=== PATIENT | female | born 1935 | race Caucasian/White ===

== ENCOUNTER 2022-01-30 14:05 | Outpatient (CLI) | payer MEDICARE, BC | END 2022-01-30 14:06 | disposition home or self-care (01) | LOC: CSHMAMMO 14:05 | PROVIDERS: ATTEND Family Medicine | DX: Z12.31 Encounter for screening mammogram for malignant neoplasm of breast (principal); Z98.890 Other specified postprocedural states; Z91.89 Other specified personal risk factors, not elsewhere classified; Z80.3 Family history of malignant neoplasm of breast | CPT/HCPCS: 77063; 77067 ==

== ENCOUNTER 2022-04-04 15:49 | Inpatient (IN) | payer MEDICARE, BC ==
[2022-04-04 16:35] LABS: #Monocytes 0.3 10x3/uL (0.0-1.1); #Neutrophils 4.5 10x3/uL (1.5-8.4); %Basophils 0.2 % (0.0-2.0); %Eosinophils 0.6 % (0.0-6.0); %Lymphocytes 24.2 % (18.0-47.0); %Monocytes 5.3 % (0.0-10.0); %Neutrophils 69.4 % (40.0-75.0); Hemoglobin 12.7 g/dL (12.0-15.5); Mean Corpuscular HGB CONC 33.2 g/dL (32.0-36.0); Mean Corpuscular Hemoglobin 29.1 pg (27.0-33.0); Mean Corpuscular Volume 87.4 fl (81.6-98.3); Platelet Count 235 10x3/uL (150-450); RBC Distribution Width 13.2 % (11.5-14.5); Red Blood Cell (RBC) Count 4.37 10x6/uL (3.90-5.03); White Blood Cell (WBC) Count 6.5 10x3/uL (3.5-10.5)
[2022-04-04 16:46] LABS: ALT (SGPT) 15 U/L (8-55); AST (SGOT) 25 U/L (5-34); Albumin 3.8 g/dL (3.4-4.8); Alkaline Phosphatase 59 U/L (40-110); Anion Gap 10 mmol/L (10-20); BUN (Urea Nitrogen) 16 mg/dL (9.8-20.1); Bilirubin, Total 0.2 mg/dL (0.2-1.2); Calc. Creatinine Clearance 0 mL/min (70-130); Calcium 8.9 mg/dL (7.8-10.44); Carbon Dioxide 25 mmol/L (23-31); Chloride 100 mmol/L (98-107); Estimated GFR 80; Globulin 2.9 g/dL (2.4-3.5); Glucose 184 mg/dL (83-110); Lipase 32 U/L (8-78); Potassium 3.7 mmol/L (3.5-5.1); Protein, Total 6.7 g/dL (5.8-8.1); Sodium 131 mmol/L (136-145)
[2022-04-04] MEDS ORDERED: Meclizine HCl 25 MG TAB ONE (17:29)
[2022-04-04 17:47] LABS: Bilirubin Neg (Negative); Blood, Urine 10 (Negative); Clarity Clear (Clear); Glucose, Urine (Dipstick) Normal (Negative); Ketone, Urine Negative (Negative); Leukocyte Negative (Negative); Nitrite Negative (Negative); Protein, Urine (Dipstick) Negative (Neg-Trace); Urobilinogen Normal mg/dL (Less than 2)
[2022-04-04 18:04] LABS: Bacteria/HPF Rare-Few HPF (None Seen); RBC/HPF 0-3 HPF (0-3); Squamous Epithelial None Seen HPF (0-3); WBC/HPF 0-3 HPF (0-3)
[2022-04-04] MEDS ORDERED: Aspirin 325 MG TAB ONE (20:40)
[2022-04-04] MEDS ORDERED: Lorazepam 2 MG/ML VIAL ONE (20:40)
[2022-04-05 02:13] LABS: Troponin I Less than 0.010 ng/mL (< 0.028)
[2022-04-05 04:34] LABS: Hemoglobin 11.6 g/dL (12.0-15.5); Mean Corpuscular HGB CONC 33.7 g/dL (32.0-36.0); Mean Corpuscular Hemoglobin 28.9 pg (27.0-33.0); Mean Corpuscular Volume 85.8 fl (81.6-98.3); Mean Platelet Volume 9.9 fl (7.4-10.4); Platelet Count 223 10x3/uL (150-450); RBC Distribution Width 13.2 % (11.5-14.5); Red Blood Cell (RBC) Count 4.01 10x6/uL (3.90-5.03); White Blood Cell (WBC) Count 6.1 10x3/uL (3.5-10.5)
[2022-04-05 04:41] LABS: Anion Gap 12 mmol/L (10-20); BUN (Urea Nitrogen) 10 mg/dL (9.8-20.1); Calc. Creatinine Clearance 0 mL/min (70-130); Calcium 8.8 mg/dL (7.8-10.44); Carbon Dioxide 22 mmol/L (23-31); Cardiac Risk 3.3 (Less than 4.5); Chloride 109 mmol/L (98-107); Cholesterol 172 mg/dl (< 200 Desired); Estimated GFR 86; Glucose 90 mg/dL (83-110); HDL Cholesterol 52 mg/dL (>60 Neg Risk); LDL Cholesterol, Calculated 107 mg/dL; Potassium 3.2 mmol/L (3.5-5.1); Sodium 140 mmol/L (136-145); Triglycerides 64 mg/dL (Less than 150)
[2022-04-05 06:06] LABS: MDiff Complete? YES
[2022-04-05 06:10] LABS: Band 1 % (5-11); Eosinophils 2 % (0-10); Lymphocytes 51 % (21-51); Monocytes 12 % (0-10); Neutrophil 34 % (42-75)
[2022-04-05 06:12] LABS: RBC Morphology Normal
[2022-04-05 06:13] LABS: Platelet Morphology Comment Appears Adequate
[2022-04-05] MEDS: Sodium Chloride 0.9% 1,000 ML IV SCH ×3 (06:58→21:17)
[2022-04-05 07:33] VITALS: BMI 22.4
[2022-04-05 07:53] LABS: Amphetamine Not Detected (NotDetected); Barbiturates Screen Not Detected (NotDetected); Benzodiazepine Screen Not Detected (NotDetected); Cocaine Metabolite Screen Not Detected (NotDetected); Methadone Not Detected (NotDetected); Methamphetamine Not Detected (NotDetected); Opiate Screen Not Detected (NotDetected); Oxycodone Screen Not Detected (NotDetected); Phencyclidine (PCP) Not Detected (NotDetected); THC/Cannabinoid Screen Not Detected (NotDetected); Tricyclic Screen Not Detected (NotDetected)
[2022-04-05] MEDS ORDERED: Enoxaparin Sodium 40 MG/0.4 ML SYRINGE SC SCH (09:00)
[2022-04-05] MEDS ORDERED: Aspirin 81 mg Enteric Coated Tablet PO SCH (09:00)
[2022-04-05] MEDS ORDERED: Levothyroxine Sodium 100 MCG TAB PO SCH (09:15)
[2022-04-05] MEDS: Amlodipine 5 MG TAB PO SCH (10:33)
[2022-04-05] MEDS: hydrALAZINE 10 MG TAB PO SCH ×2 (10:35→21:04)
[2022-04-05] MEDS: Lisinopril 20 MG TAB PO SCH (21:03)
[2022-04-05] MEDS: Apixaban 2.5 MG TAB PO SCH (21:04)
[2022-04-05] MEDS: Amiodarone 200 MG TAB PO SCH (21:04)
[2022-04-06] MEDS ORDERED: hydrALAZINE 20 MG/ML VIAL SLOW IVP PRN (05:09)
[2022-04-06] MEDS: Levothyroxine Sodium 100 MCG TAB PO SCH (05:14)
[2022-04-06] MEDS: Amlodipine 5 MG TAB PO SCH (08:17)
[2022-04-06] MEDS: Lisinopril 20 MG TAB PO SCH ×2 (08:17→20:12)
[2022-04-06] MEDS: Amiodarone 200 MG TAB PO SCH ×2 (08:18→20:26)
[2022-04-06] MEDS: hydrALAZINE 10 MG TAB PO SCH ×2 (08:18→20:12)
[2022-04-06] MEDS: Apixaban 2.5 MG TAB PO SCH ×2 (08:18→20:13)
[2022-04-06] MEDS: Meloxicam 7.5 MG TAB PO SCH (08:18)
[2022-04-06] MEDS: Potassium Chloride 10 MEQ TAB PO SCH (08:18)
[2022-04-06] MEDS ORDERED: Aspirin 325 mg Enteric Coated Tablet PO SCH (09:00)
[2022-04-06 09:12] LABS: Anion Gap 13 mmol/L (10-20); BUN (Urea Nitrogen) 11 mg/dL (9.8-20.1); Calc. Creatinine Clearance 58 mL/min (70-130); Calcium 8.9 mg/dL (7.8-10.44); Carbon Dioxide 21 mmol/L (23-31); Chloride 112 mmol/L (98-107); Estimated GFR 86; Glucose 93 mg/dL (83-110); Potassium 3.7 mmol/L (3.5-5.1); Sodium 142 mmol/L (136-145)
[2022-04-06] MEDS: Sodium Chloride 0.9% 1,000 ML IV SCH (17:59)
[2022-04-06] MEDS: Atorvastatin Calcium 40 MG TAB PO SCH (20:11)
[2022-04-07] MEDS: Levothyroxine Sodium 100 MCG TAB PO SCH (05:18)
[2022-04-07 05:38] LABS: #Eosinphils 0.2 10x3/uL (0.0-0.5); #Monocytes 0.8 10x3/uL (0.0-1.1); #Neutrophils 2.9 10x3/uL (1.5-8.4); %Basophils 0.3 % (0.0-2.0); %Eosinophils 2.8 % (0.0-6.0); %Monocytes 11.8 % (0.0-10.0); %Neutrophils 45.8 % (40.0-75.0); Hemoglobin 12.5 g/dL (12.0-15.5); Mean Corpuscular HGB CONC 33.3 g/dL (32.0-36.0); Mean Corpuscular Hemoglobin 28.8 pg (27.0-33.0); Mean Corpuscular Volume 86.4 fl (81.6-98.3); Mean Platelet Volume 10.2 fl (7.4-10.4); Platelet Count 240 10x3/uL (150-450); RBC Distribution Width 13.9 % (11.5-14.5); Red Blood Cell (RBC) Count 4.34 10x6/uL (3.90-5.03); White Blood Cell (WBC) Count 6.4 10x3/uL (3.5-10.5)
[2022-04-07 05:43] LABS: Anion Gap 10 mmol/L (10-20); BUN (Urea Nitrogen) 18 mg/dL (9.8-20.1); Calc. Creatinine Clearance 54 mL/min (70-130); Calcium 8.6 mg/dL (7.8-10.44); Carbon Dioxide 22 mmol/L (23-31); Chloride 113 mmol/L (98-107); Estimated GFR 81; Glucose 91 mg/dL (83-110); Potassium 3.6 mmol/L (3.5-5.1); Sodium 141 mmol/L (136-145)
[2022-04-07] MEDS: Amiodarone 200 MG TAB PO SCH ×2 (08:30→20:07)
[2022-04-07] MEDS: Potassium Chloride 10 MEQ TAB PO SCH (08:30)
[2022-04-07] MEDS: Lisinopril 20 MG TAB PO SCH ×2 (08:30→20:08)
[2022-04-07] MEDS: Amlodipine 10 MG TAB PO SCH (08:30)
[2022-04-07] MEDS: hydrALAZINE 10 MG TAB PO SCH ×2 (08:30→20:07)
[2022-04-07] MEDS: Meloxicam 7.5 MG TAB PO SCH (08:30)
[2022-04-07] MEDS: Apixaban 2.5 MG TAB PO SCH ×2 (08:30→20:08)
[2022-04-07] MEDS: Sodium Chloride 0.9% 1,000 ML IV SCH ×2 (08:31→22:29)
[2022-04-07 11:49] LABS: Hemoglobin A1c 5.8 % (4.0-6.0)
[2022-04-07] MEDS: Atorvastatin Calcium 40 MG TAB PO SCH (20:08)
[2022-04-08 04:56] LABS: #Eosinphils 0.3 10x3/uL (0.0-0.5); #Monocytes 0.7 10x3/uL (0.0-1.1); #Neutrophils 2.6 10x3/uL (1.5-8.4); %Basophils 0.3 % (0.0-2.0); %Eosinophils 4.1 % (0.0-6.0); %Lymphocytes 47.8 % (18.0-47.0); %Monocytes 9.9 % (0.0-10.0); %Neutrophils 37.8 % (40.0-75.0); Hemoglobin 12.1 g/dL (12.0-15.5); Mean Corpuscular HGB CONC 33.2 g/dL (32.0-36.0); Mean Corpuscular Hemoglobin 28.9 pg (27.0-33.0); Mean Corpuscular Volume 86.9 fl (81.6-98.3); Mean Platelet Volume 10.1 fl (7.4-10.4); Platelet Count 237 10x3/uL (150-450); RBC Distribution Width 13.9 % (11.5-14.5); Red Blood Cell (RBC) Count 4.19 10x6/uL (3.90-5.03); White Blood Cell (WBC) Count 6.8 10x3/uL (3.5-10.5)
[2022-04-08 05:07] LABS: Anion Gap 11 mmol/L (10-20); BUN (Urea Nitrogen) 17 mg/dL (9.8-20.1); Calc. Creatinine Clearance 54 mL/min (70-130); Calcium 8.6 mg/dL (7.8-10.44); Carbon Dioxide 21 mmol/L (23-31); Chloride 115 mmol/L (98-107); Estimated GFR 81; Glucose 90 mg/dL (83-110); Potassium 4.5 mmol/L (3.5-5.1); Sodium 142 mmol/L (136-145)
[2022-04-08] MEDS: Levothyroxine Sodium 100 MCG TAB PO SCH (05:35)
[2022-04-08] MEDS: Lisinopril 20 MG TAB PO SCH ×2 (08:26→20:21)
[2022-04-08] MEDS: Amiodarone 200 MG TAB PO SCH ×2 (08:26→20:22)
[2022-04-08] MEDS: Meloxicam 7.5 MG TAB PO SCH (08:26)
[2022-04-08] MEDS: hydrALAZINE 10 MG TAB PO SCH ×2 (08:26→20:21)
[2022-04-08] MEDS: Potassium Chloride 10 MEQ TAB PO SCH (08:26)
[2022-04-08] MEDS: Amlodipine 10 MG TAB PO SCH (08:27)
[2022-04-08] MEDS: Apixaban 2.5 MG TAB PO SCH ×2 (08:27→20:21)
[2022-04-08] MEDS: Sodium Chloride 0.9% 1,000 ML IV SCH (08:27)
[2022-04-08] MEDS: Atorvastatin Calcium 40 MG TAB PO SCH (20:21)
[2022-04-09] MEDS: Sodium Chloride 0.9% 1,000 ML IV SCH ×2 (00:18→08:16)
[2022-04-09] MEDS ORDERED: Levothyroxine Sodium 100 MCG TAB ONE (04:10)
[2022-04-09] MEDS: Levothyroxine Sodium 100 MCG TAB PO SCH (05:47)
[2022-04-09 07:10] VITALS: TEMP 98.3
[2022-04-09] MEDS: Apixaban 2.5 MG TAB PO SCH (08:15)
[2022-04-09] MEDS: Potassium Chloride 10 MEQ TAB PO SCH (08:15)
[2022-04-09] MEDS: Meloxicam 7.5 MG TAB PO SCH (08:15)
[2022-04-09] MEDS: Lisinopril 20 MG TAB PO SCH (08:15)
[2022-04-09] MEDS: Amiodarone 200 MG TAB PO SCH (08:15)
[2022-04-09] MEDS: Amlodipine 10 MG TAB PO SCH (08:15)
[2022-04-09] MEDS: hydrALAZINE 10 MG TAB PO SCH (08:15)
[2022-04-09 08:16] VITALS: BP 126/58
[2022-04-09] MEDS ORDERED: CLOBETASOL 0.05% TOP SCH (09:00)
[2022-04-09] MEDS ORDERED: Clobetasol 0.05% Cream 15 gm Tube TOP SCH (09:00)
[2022-04-09] MEDS ORDERED: hydrOXYzine 10 MG TAB PO SCH (09:00)
== END 2022-04-09 13:53 | DRG 64 ==
LOC: CSHERS 15:49 → CSHTELE 21:00 → OBSVTOIN 04-05 16:12
PROVIDERS: ADMIT Family Medicine; ATTEND Internal Medicine
DX: I63.81 Other cerebral infarction due to occlusion or stenosis of small artery (principal); G92.8 Other toxic encephalopathy; I63.40 Cerebral infarction due to embolism of unspecified cerebral artery; I10 Essential (primary) hypertension; E03.9 Hypothyroidism, unspecified; R42 Dizziness and giddiness; E78.5 Hyperlipidemia, unspecified; I48.0 Paroxysmal atrial fibrillation; H53.9 Unspecified visual disturbance; D64.9 Anemia, unspecified; R53.1 Weakness; Z20.822 Contact with and (suspected) exposure to COVID-19; T42.4X5A Adverse effect of benzodiazepines, initial encounter; Z96.642 Presence of left artificial hip joint; Z88.8 Allergy status to other drugs, medicaments and biological substances; Z88.1 Allergy status to other antibiotic agents; Z79.899 Other long term (current) drug therapy; Z98.890 Other specified postprocedural states; Z90.710 Acquired absence of both cervix and uterus; Z79.890 Hormone replacement therapy; Z79.82 Long term (current) use of aspirin
CPT/HCPCS: 36415; 70450; 70551; 71045; 80048; 80053; 80061; 80306; 81003; 81015; 83036; 83605; 83690; 83735; 84443; 84484; 85025; 93005; 93306; 93880; 94760; 96372; 96374; G0378; J0360; J1650; J2060; J7050; U0003; U0005